=== PATIENT | female | born 1990 | race Caucasian/White ===

== ENCOUNTER → 2018-01-05 09:15 | Outpatient (CLI) | payer OTHER, SELFPAY ==
--- NOTE | 2018-01-05 09:15 | DT_ITS ---
This patient was seen during an EMR downtime January 02, 2018 - January 09, 2018. This patient may have a combination of paper and electronic documentation or all paper documentation. All documentation is viewable within the e-chart portion of [facility] for each patient visit.
[2018-01-17 14:01] LABS: HPV Reflexed? NOT INDICATED
== END ==
PROVIDERS: Visit Provider Obstetrics & Gynecology
DX: Z12.4 Encounter for screening for malignant neoplasm of cervix (principal)
CPT/HCPCS: 88175; G0145

== ENCOUNTER 2020-10-10 12:24 | Outpatient (RCR) | payer OTHER, SELFPAY ==
[2019-07-17 07:38] VITALS: BMI 23.8
[2020-10-10] MEDS: COVID-19 VACC, MRNA(PFIZER)/PF 30 MCG/0.3 ML SYRINGE IM (16:48)
[2020-10-31] MEDS: COVID-19 VACC, MRNA(PFIZER)/PF 30 MCG/0.3 ML SYRINGE IM (16:28)
== END 2021-01-06 23:59 ==
LOC: IMMUN 12:24
PROVIDERS: PCP Nurse Practitioner Family; Visit Provider Family Medicine
DX: Z23 Encounter for immunization (principal)
CPT/HCPCS: 0001A; 0002A; 91300

== ENCOUNTER 2020-10-17 09:23 | Emergency (ER) | payer OTHER, SELFPAY ==
[2019-07-17 07:38] VITALS: BMI 23.8
[2020-10-17 09:24] VITALS: BP 140/76; PULSE 84; RESP 18; TEMP 36.6; O2SAT 96; BMI 28.7
[2020-10-17 09:29] VITALS: RESP 16
--- NOTE | 2020-10-17 09:33 | VDLE_ITS ---
Reason For Study: Pain Procedure LEFT This is a venous duplex using B-mode, color GSV is normal. flow and spectral Doppler. CFV is compressible, spontaneous, phasic, Exam performed portable in ED. competent, and demonstrates normal A preliminary report was called and/or faxed augmentation. to Mario. FV is compressible, spontaneous, phasic, competent and demonstrates normal augmentation. POP V is compressible, spontaneous, phasic, competent and demonstrates normal augmentation. T/P Trunk is compressible. PTV is compressible. LT PerV is compressible. Interpretation Summary There is no evidence of left lower extremity deep vein thrombosis. Left great saphenous vein appears patent and compressible segmentally. Ordering Physician: Tim Martin Referring Physician: Tim Carrera Performed By: Catalina Lopez RVT
--- NOTE | 2020-10-17 09:34 | ED.VIS.GEN ---
History of Present Illness Chief Complaint: Lower Extremity Injury Informant: Patient Narrative: 29-year-old female presenting with left calf pain. She is 17 weeks G1, P0 patient of Dr. Truong. has been unremarkable. She also has a history of melanoma stage Ia. The patient reports that yesterday she began to have pain over the medial posterior calf. She notes some mild swelling and today noticed a small amount of redness over the anterior medial aspect of the leg. She states that she did have some radiation of her pain just above her knee. She denies any trauma or falls. No prior history of DVT PE. No familial history of known clotting disorders. Past Medical History - Allergies and Home Meds Allergies/Adverse Reactions: Allergies Penicillins Allergy (Mild, Verified 10/17/20 09:26) Nausea/Vom/Diarrhea Primary Care Physician: Marianna Lara MD [STAFF PHYSICIAN] - Keep Chepe appointment Tim Carrera NP, POWER EQUIPMENT MECHANICS INSTRUCTOR-C [Primary Care Provider] - As Needed Past Medical History: - - Melanoma Surgical History: noncontributory Lives: Spouse/ Significant Other Smoking Status: Never smoker Alcohol: None Drugs: None Review of Systems General: Denies: Chills, Fever, Sweats Eyes: Denies: Visual changes - bilaterally, Diplopia ENT: Denies: Rhinorrhea, Sore throat Cardiovascular: Denies: Chest pain, Palpitations Respiratory: Denies: Dyspnea, Cough, Dyspnea on exertion Gastrointestinal: Denies: Abdominal pain, Nausea, Vomiting, Diarrhea, Melena, Hematochezia Genitourinary: Denies: Dysuria, Hematuria, Frequency Musculoskeletal: Reports: Swelling, Extremity Pain. Denies: Back pain Skin: Denies: Rash, Wounds Neurological: Denies: Headache, Weakness, Numbness Physical Exam Vital Signs/Narrative: Vital Signs Temp Pulse Resp BP Pulse Ox 10/17/20 09:29 16 10/17/20 09:24 97.9 F 84 18 140/76 H 96 Inital Vital Signs reviewed: Yes General: Well nourished, Well developed, No Acute Distress Head: Normocephalic, Atraumatic Eyes: Perrl, EOMI ENT: Moist mucous membranes, No rhinorrhea Neck: Supple, Nontender Cardiovascular: Regular rate, Regular rhythm, No murmurs Respiratory: No distress, CTA bilaterally, Chest nontender Abdomen: Soft, Nontender, Nondistended, Normal bowel sounds Back: Nontender, Normal Inspection Extremities: - - No significant swelling from left to right leg. Tenderness over the medial aspect of the left calf. There is a faint area of erythema over the anterior mid calf. Skin: Normal color, No rash Neurological: Alert, Oriented x3, Cranial nerves II-XII grossly intact, Normal Strength, Normal Sensation Psychological: Normal affect, Normal Mood Diagnostic/Tx/Re-eval - Medical Decision Making Side ultrasound shows a heart rate of 143. Duplex ultrasound was obtained and negative for DVT. Patient will be discharged home with supportive care. Instructions to follow-up with her doctors return if worsening or concerns ED Disposition - Plan for ED Patient: Disposition: Home or Assisted Living Diagnosis: Pain of left calf Instructions: ED Muscle Strain, Extremity Referrals: Tim Carrera NP, POWER EQUIPMENT MECHANICS INSTRUCTOR-C [Primary Care Provider] - As Needed Marianna Lara MD [STAFF PHYSICIAN] - Keep Chepe appointment
[2020-10-17 10:12] VITALS: BP 108/77; PULSE 62; RESP 14; O2SAT 99
== END 2020-10-17 10:12 | disposition home or self-care (01) ==
PROVIDERS: Emergency Provider Emergency Medicine; PCP Nurse Practitioner Family
DX: O26.892 Other specified pregnancy related conditions, second trimester (principal); M79.662 Pain in left lower leg; Z3A.17 17 weeks gestation of pregnancy
CPT/HCPCS: 93971; 99282

== ENCOUNTER 2021-03-18 19:10 | Inpatient (IN) | payer OTHER, SELFPAY ==
[2021-03-09 09:17] VITALS: BMI 28.7
[2021-03-18] VITALS (13 sets, daily range): BP systolic 119–137; BP diastolic 59–76; PULSE 67–90; TEMP 36.1–36.8; O2SAT 94–98
[2021-03-18] MEDS: Lactated Ringers 1,000 ML 50 ML IV (19:35)
[2021-03-18 19:48] LABS: Absolute Lymphocyte Count 2.23 X10^3/uL (0.83-4.51); Absolute Neutrophil Count 11.1 X10^3/uL (2.0-7.7); Basophil# 0.03 X10^3/uL; Basophil% 0.2 % (0-1); Eosinophils% 0.7 % (0-5); Hematocrit 31.6 % (37-47); Hemoglobin 10.5 g/dL (12.0-15.0); Lymphocyte # 2.23 X10^3/ul (0.83-4.51); Lymphocyte % 15.5 % (19-41); Mean Corp Hgb Conc 33.2 g/dL (32-36); Mean Corpuscular Hgb 31.7 pg (27.0-32.0); Mean Corpuscular Volume 95.5 fL (81-99); Mean Platelet Vol. 9.9 fl (6.2-12.0); Monocyte# 0.79 X10^3/uL; Monocyte% 5.5 % (0-10); NRBC Flagged by Analyzer 0 % (0-5); Neutrophil # 11.12 X10^3/uL (2.7-7.7); Neutrophil % 77.3 % (47-70); Platelet Count 343 K/mm3 (150-450); RBC Distribution Width CV 13.5 % (11.6-14.6); Red Blood Count 3.31 M/mm3 (4.2-5.4); White Blood Count 14.4 K/mm3 (4.4-11.0)
[2021-03-18] MEDS: Oxytocin 30 units/NS 500 ml 30 UNITS/500 ML IV.SOLN IV (21:38)
[2021-03-19] VITALS (54 sets, daily range): BP systolic 109–147; BP diastolic 55–86; PULSE 64–88; TEMP 36.3–37.4; O2SAT 96–100; BMI 33.9
[2021-03-19] MEDS: Lactated Ringers 1,000 ML 200 ML IV ×5 (02:47→21:56)
--- NOTE | 2021-03-19 07:16 | PCM.HP.OB ---
HPI - General General Date of Admission: 03/18/21 HPI Narrative LATHA NEWTON, is a 30 F @ 39.4 weeks who presents for elective IOL. pt has h/o Melanoma- doing well. Maternal Data Information Final TARAH: 03/22/21 Final TARAH Source: US <20 weeks [facility] Medical History History of melanoma Left knee pain Home Medications [id number] acid 1 each PO DAILY 10/17/20 [History Last Taken 03/18/21] ferrous sulfate [iron] 325 mg PO DAILY 03/18/21 [History Last Taken 03/18/21] Allergy/AdvReac Type Severity Reaction Status Date / Time Penicillins Allergy Intermediate Rash Verified 03/18/21 19:32 Family History Father Anxiety Grandfather Alcoholism Myocardial infarction Grandmother Breast cancer Mother Hypertension Surgical History HISTORY OF LEFT KNEE MENISCUS REPAIR History of skin graft History of wisdom tooth extraction Social History Smoking Status: Never smoker alcohol intake: never substance use type: does not use what type of physical activity do you participate in: walking and yoga frequency: 3-4 times per week History Elective abortions Hx Para 0 Spontaneous abortions Hx # Term Pregnancies Ectopic pregnancies Hx # Pregnancies Multiple births # of living children Vital Signs Vital Signs Vital Signs: 03/18/21 19:30 03/18/21 19:31 03/18/21 19:36 Temperature 98.3 F Temperature Source Pulse Rate 80 81 Blood Pressure BP Systolic BP Diastolic Pulse Ox 98 98 03/18/21 19:41 03/18/21 19:42 03/18/21 21:37 Temperature Temperature Source Pulse Rate 78 90 73 Blood Pressure 119/72 127/76 H BP Systolic 119 127 BP Diastolic 72 76 Pulse Ox 97 03/18/21 21:40 03/18/21 21:45 03/18/21 21:46 Temperature 98.1 F Temperature Source Temporal Pulse Rate 76 81 Blood Pressure BP Systolic BP Diastolic Pulse Ox 96 97 03/18/21 22:35 03/18/21 22:38 03/18/21 23:33 Temperature 98.0 F Temperature Source Temporal Pulse Rate 69 67 73 Blood Pressure 119/59 L 137/63 H BP Systolic 119 137 BP Diastolic 59 63 Pulse Ox 94 03/18/21 23:40 03/19/21 00:31 03/19/21 00:33 Temperature 96.9 F L 98.3 F Temperature Source Temporal Temporal Pulse Rate 76 Blood Pressure 120/66 BP Systolic 120 BP Diastolic 66 Pulse Ox 03/19/21 01:31 03/19/21 02:38 03/19/21 02:39 Temperature 97.6 F L 98.4 F Temperature Source Temporal Pulse Rate 77 75 Blood Pressure 133/76 H 122/71 H BP Systolic 133 122 BP Diastolic 76 71 Pulse Ox 97 03/19/21 03:32 03/19/21 03:33 03/19/21 04:27 Temperature 97.4 F L 97.6 F L Temperature Source Temporal Temporal Pulse Rate 73 Blood Pressure 123/64 H BP Systolic 123 BP Diastolic 64 Pulse Ox 98 03/19/21 04:28 03/19/21 05:35 03/19/21 05:36 Temperature 97.8 F Temperature Source Temporal Pulse Rate 70 69 Blood Pressure 109/59 L 117/69 BP Systolic 109 117 BP Diastolic 59 69 Pulse Ox 98 03/19/21 06:22 03/19/21 06:23 Temperature Temperature Source Pulse Rate 70 74 Blood Pressure 119/73 BP Systolic 119 BP Diastolic 73 Pulse Ox 97 Weight Weight: 92.5 g Body Mass Index (BMI) 0.0 Physical Exam Narrative VE: 3/85/-2 Const alert and oriented x3 General Appearance: cooperative HEENT normocephalic GI GI Narrative: Gravid, non tender to palpation. OB / External & Speculum: external exam normal Extremity normal to inspection Skin no rashes or lesions noted Neuro oriented x3 and CN's II-XII intact bilaterally Psych Appearance: grossly normal Labs Labs Labs: Blood Type O NEGATIVE Antibody Screen NEGATIVE Hct 31.6 % (37-47) L Hgb 10.5 g/dL (12.0-15.0) L Assessment & Plan (1) 39 weeks gestation of : (2) Encounter for elective induction of labor: PLAN: Admit to L&D Mont[place] FHR/TOCO Epidural if requested for pain Monitor VS Anticipate AROM performed- Clear fluid continue pitocin
[2021-03-19] MEDS: Lactated Ringers 500 ML 999 ML IV (09:51)
[2021-03-19] MEDS: fentaNYL-bupivacaine (epidural) 100 ML BAG EPIDURAL ×3 (10:57→19:42)
[2021-03-19] MEDS: Ondansetron 4 MG/2 ML Vial IV ×3 (11:22→19:38)
[2021-03-19] MEDS: 0.9% Saline Lock 10 ML Syringe IV ×2 (11:22→16:00)
[2021-03-20] VITALS (14 sets, daily range): BP systolic 100–138; BP diastolic 48–76; PULSE 73–93; RESP 16–18; TEMP 36.3–37.3
--- NOTE | 2021-03-20 01:37 | PLAC_PTH ---
PATIENT: LATHA NEWTON LOC: WP U#:[id number] AGE/SX: 30/F [facility]: Dr. Marianna Lara, MDDOB: 1990 BED: 1 DIS: 03/21/2021 SPEC #: [id number] RECD: 03/20/21 05:37 STATUS: BIJU SAGE #: [id number] AISHA: 03/20/21 01:[address]: Marianna Lara DEPT: SURGICAL PATHOLOGY RECD BY: Oriana Robles ENTERED: 03/20/21 07:48 SP TYPE: PLACENTA OTHR DR: Tim Carrera, BLADE GRADER OPERATOR-C Tissues: Placenta, NOS Procedures: Surgery Specimen Level V HEADER OPERATION: Vaginal delivery PRE-OP DIAGNOSIS: Maternal history of melanoma ? evaluate for malignancy TISSUE SUBMITTED: Placenta MICROSCOPIC DIAGNOSIS Placenta: Placental disc - third trimester placenta (489 gm). - Focal area of intraparenchymal hemorrhage (0.5 cm in greatest dimension). - Focal area of fibrinous deposition (0.5 cm in greatest dimension, maternal surface). - Focal acute vasculitis of subamniotic blood vessels. - Negative for malignancy. See comment. Membranes ? moderate acute chorioamnionitis. Umbilical cord - three blood vessels and acute funisitis. SJ:safia 03/24/2021 COMMENT No obvious lesion consistent with melanoma is noted. MICROSCOPIC DESCRIPTION Slides are reviewed. GROSS DESCRIPTION SPECIMEN: PLACENTA / CLINICAL INFORMATION: A. Weight: 3.57 kg B. Gestational Age: 39 weeks C. Sex: Male PLACENTAL WEIGHT (POST FIXATION): 489 gm PLACENTAL DIMENSIONS: 20 x 19 x 3.5 cm PLACENTAL SHAPE: Usual ovoid PLACENTAL WEIGHT FOR GESTATIONAL AGE: Within 10-99th percentile MEMBRANES - Present A. Insertion: Marginal B. Site of rupture from edge: 3 cm from edge of placental disc C. Color of membrane: Catalan-farris D. Abnormalities: None UMBILICAL CORD - Present A. Color: Catalan-farris B. Insertion: Paracentral C. Length: 32 cm D. Diameter: 1 cm E. Number of vessels: Three F. Abnormalities: None PLACENTAL DISC - Present A. Color of surface: Catalan-farris B. surface abnormalities: None C. Maternal cotyledons: Intact with minimal tears D. Attached retro placental clot: No clot E. Cut surface: Dark red and spongy F. Lesions: Sections reveal two catalan, indurated areas each measuring 0.5 cm in greatest dimension. G. Separate clot: Absent SECTIONS SUBMITTED: 1. Membrane roll 2. Cord, maternal end, lesion 3. Cord, end 4. Placental disc, and maternal surfaces 5. Placental disc, and maternal surfaces 6. Placental disc, and maternal surfaces 7. Placental disc, maternal and surfaces 8. Placental disc, maternal and surfaces, lesion SJ:rg 03/23/21 TC:2 CPT: 33248
[2021-03-20] MEDS: Oxytocin 30 units/NS 500 ml 30 UNITS/500 ML IV.SOLN 334 UNITS IV (01:44)
[2021-03-20] MEDS: Methylergonovine 0.2 MG/ML Ampul IM (01:46)
--- NOTE | 2021-03-20 02:59 | EX.PCM.OBRPT ---
Assessment & Plan (1) Encounter for elective induction of labor: (2) 39 weeks gestation of : Maternal Data Information Final TARAH: 03/22/21 Gestational age: 39&5 Vaginal Delivery Maternal Presentation Maternal Presentation: Elective Induction Type of Induction: Pitocin and Amniotomy Operative Information Date of Procedure: 03/20/21 Pre-Operative Diagnosis: Elective induction of labor Post-Operative Diagnosis: Same Surgery / Procedure Performed: Spontaneous Vaginal Delivery Type of Anesthesia: Epidural Estimated Blood Loss: 500ml Findings Description of Procedure: Patient prepped & draped when C/C/+2. She pushed well to deliver the head. head gently guided to allow delivery of anterior and posterior shoulders. No excess traction placed on head. Body delivered and 3VC clamped & cut in delayed fashion. Placenta delivered with gentle traction and good uterine tone obtained. Presentation: ROBSON Amniotic Membrane Rupture Type: Artificial Amniotic Fluid Description: Clear Placental Delivery Description: Expressed Placenta Disposition: [facility] Specimen(s) Removed: Placenta - sent to pathology Cord Vessel Description: 3 Vessels Cord Entanglement: None A Gender: Male (Zaheer) (1 minute): 8 (5 minute): 9 Delayed Cord Clamping: Yes Post Vaginal Delivery Medications Given After Delivery: IV Pitocin and IM Methergin Episiotomy Description: None Laceration: 1st degree (vaginal (bilateral) - repaired with 3-0 vicryl) Complication Complications: None
[2021-03-20] MEDS: Benzocaine/Lanolin/Aloe Vera 1 SPRAY EACH TOPICAL (04:34)
[2021-03-20] MEDS: Ibuprofen 600 MG Tablet PO (04:35)
[2021-03-20 06:40] LABS: Pathology Specimen OB SEE PATHOLOGY REPORT
[2021-03-20] MEDS: Acetaminophen 500 MG Tablet 1000 MG PO (20:41)
[2021-03-21 02:23] VITALS: BP 98/43; PULSE 70; RESP 18
[2021-03-21 07:48] VITALS: BP 128/64; PULSE 76; RESP 16; TEMP 36.4
--- NOTE | 2021-03-21 08:20 | PCM.PN.OB ---
Subjective Subjective Patient seen at bedside. Awake and alert. Feeling great. Ambulating and voiding without difficulty. with support. Has appointment with department next week. Requests discharge home. Objective Data Objective Data Vital Signs: Vital Signs Temp Pulse Resp BP Pulse Ox 97.5 F L 76 16 128/64 H 97 03/21/21 07:48 03/21/21 07:48 03/21/21 07:48 03/21/21 07:48 03/19/21 18:54 Oxygen Delivery Method Room Air Weight: 203 lb 14.841 oz Body Mass Index (BMI) 33.9 Intake & Output: Intake and Output for Last 24 Hours 03/19/21 03/20/21 03/21/21 23:59 23:59 23:59 Intake Total 5471.30 / 5471.30 2391.14 / 2391.14 Output Total 1350 / 1350 1250 / 1250 Balance 4121.30 / 4121.30 1141.14 / 1141.14 Lab / Micro Data Result Diagrams: 03/18/21 19:35 ROS Eyes Eyes: Denies blurry vision, change in vision or spots in vision ENT HEENT: Denies dizziness or headache(s) Cardiovascular Cardiovascular: Denies abdominal pain, chest pain or dyspnea Respiratory/Chest Respiratory/Chest: Denies cough, dyspnea, shortness of breath at rest or shortness of breath with exertion Gastrointestinal Gastrointestinal: Denies abdominal pain, diarrhea or vomiting Genitourinary Genitourinary: Denies change in urinary stream, difficulty urinating or dysuria Musculoskeletal Musculoskeletal: Reports none Integumentary Integumentary: Denies rash Neurologic Neurologic: Denies dizziness, headache(s), memory loss or weakness Physical Exam Const alert and no apparent distress General Appearance: cooperative and comfortable Exam Limitations: no limitations HEENT normocephalic Eyes General Eye: normal appearance of both eyes Neck full ROM General: normal visual inspection Chest Chest: symmetrical chest wall rise Resp normal respiratory effort and normal air movement Effort and Inspection: symmetric chest movement Auscultation: clear to auscultation bilaterally Cardio regular rate and regular rhythm GI normal to inspection, nondistended, normoactive bowel sounds Back/Spine normal ROM Extremity full ROM and no calf tenderness General Extremity: normal exam except as noted Skin no rashes or lesions noted Neuro CN's II-XII intact bilaterally Psych mental status grossly normal Assessment & Plan (1) (spontaneous vaginal delivery): (2) Mother currently breast-feeding: (3) Laceration, obstetrical, first degree: PLAN: PPD #1 Routine care support D/C home with follow up in office
--- NOTE | 2021-03-21 08:31 | PCM.DC ---
Discharge Instructions Diet Discharge Diet: No restrictions Activity May resume sexual activity in: 6-8 weeks Weight Bearing Status: Weight bearing as tolerated Dressing / Incision Call your doctor if you observe: Fever of 101 or Higher, Inability to urinate, Using more than 1 pad per hour, Shortness of breath, Chest pain, Calf discomfort and Uncontrolled pain Follow Up Care Please Follow Up With: Carol Ann Reyes CNM When: 2 weeks virtual visit/ 6 weeks in office Test Results: Test results from this visit will be discussed in further detail at your follow-up appointment, if applicable. Discharge Plan Admission Admit Date/Time: 03/18/21 19:10 Primary Reason for Your Visit: Induction of labor Attending Provider: Marianna Lara Primary Care Provider: Tim Carrera NP Instructions Patient Instructions: After a Vaginal , : Caring for Yourself Discharge Orders/Prescriptions Prescriptions: No Action [id number] acid 1 EACH tablet 1 each PO DAILY RF: 0 ferrous sulfate [iron] 325 mg (65 mg iron) Tablet 325 mg PO DAILY RF: 0 Referrals / Follow Up: Tim Carrera NP, CARPENTER HELPER MAINTENANCE-C [Primary Care Provider] - Disposition Disposition (needs filled in before D/C Order can be placed): Home, Self Care
== END 2021-03-21 11:45 | disposition home or self-care (01) | DRG 807 ==
PROVIDERS: Obstetrics & Gynecology; Admitting Provider Obstetrics & Gynecology; PCP Nurse Practitioner Family; Visit Provider Obstetrics & Gynecology
DX: O70.0 First degree perineal laceration during delivery (principal); Z37.0 Single live birth; Z85.820 Personal history of malignant melanoma of skin; Z3A.39 39 weeks gestation of pregnancy
CPT/HCPCS: 59025; 59050; 85025; 85461; 86850; 86900; 86901; 88307; 90384; 99218; J7120; A4216; G0378; J2405; J2790

== ENCOUNTER 2023-07-11 07:00 | Inpatient (IN) | payer OTHER, SELFPAY ==
[2023-07-11] VITALS (37 sets, daily range): BP systolic 102–147; BP diastolic 53–86; PULSE 62–95; RESP 16; TEMP 36.6–36.8; O2SAT 91–99; BMI 33.1
--- NOTE | 2023-07-11 | PLAC_PTH ---
PATIENT: LATHA NEWTON LOC: WP U#:[id number] AGE/SX: 32/F ROOM: WP017 RE07/11/[address]: Dr. Jia Royal MD : 1990 BED: 1 DIS: 07/12/2023 SPEC #: [id number] RECD: 07/11/23 14:52 STATUS: BIJU MORRISONDar #: [id number] AISHA: 07/11/23 00:[address]: Jia Royal DEPT: SURGICAL PATHOLOGY RECD BY: Diogenes Pace ENTERED: 07/12/23 09:14 SP TYPE: PLACENTA OTHR DR: Tim Carrera, COMMODITY LOAN CLERK-C Tissues: Placenta, NOS Procedures: Surgery Specimen Level V HEADER OPERATION: Vaginal Delivery PRE-OP DIAGNOSIS: 2 vessel cord TISSUE SUBMITTED: Placenta MICROSCOPIC DIAGNOSIS Placenta: Placental disc - third trimester placenta (387 gm). - Focal area of intraparenchymal hemorrhage (1.0 cm in greatest dimension). Membranes - no pathologic diagnosis. Umbilical cord - two blood vessels. SJ:safia 07/14/2023 MICROSCOPIC DESCRIPTION Slides are reviewed. GROSS DESCRIPTION SPECIMEN: PLACENTA / CLINICAL INFORMATION: A. Weight: 3.605 kg B. Gestational Age: 39.3 weeks C. Sex: Male PLACENTAL WEIGHT (POST FIXATION): 387 gm PLACENTAL DIMENSIONS: 17.0 x 15.5 x 3.0 cm PLACENTAL SHAPE: Usual ovoid PLACENTAL WEIGHT FOR GESTATIONAL AGE: Within 10-99th percentile MEMBRANES - Present A. Insertion: Marginal B. Site of rupture from edge: 3.0 cm from edge of placental disc C. Color of membrane: Blankenship-farris D. Abnormalities: None UMBILICAL CORD - Present A. Color: Blankenship-farris B. Insertion: Marginal C. Length: 40.0 cm D. Diameter: 1.0 cm E. Number of vessels: Two F. Abnormalities: None PLACENTAL DISC - Present A. Color of surface: Blankenship-farris B. surface abnormalities: None C. Maternal cotyledons: Intact with minimal tears D. Attached retro placental clot: No clot E. Cut surface: Dark red and spongy F. Lesions: None G. Separate clot: 8.0 x 4.0 x 1.0 cm SECTIONS SUBMITTED: 1. Umbilical cord ( end notched) 2. Umbilical cord, placental end 3. Membrane roll 4. Placental disc, and maternal surfaces 5. Placental disc, and maternal surfaces 6. Placental disc, and maternal surfaces, peripheral portion AM:safia 07/13/2023 TC:5 CPT: 67369
[2023-07-11] MEDS: Lactated Ringers 1,000 ML 50 ML IV (07:45)
[2023-07-11] MEDS: Oxytocin 15 Units/NS 250ml 15 UNITS/250 ML IV.SOLN 2 UNITS IV (08:08)
[2023-07-11 08:11] LABS: Absolute Lymphocyte Count 2.24 X10^3/uL (0.83-4.51); Absolute Neutrophil Count 10.4 X10^3/uL (2.0-7.7); Basophil# 0.06 X10^3/uL; Basophil% 0.4 % (0-1); Eosinophil# 0.06 X10^3/uL; Eosinophils% 0.4 % (0-5); Hematocrit 33.3 % (37-47); Hemoglobin 10.9 g/dL (12.0-15.0); Lymphocyte # 2.24 X10^3/ul (0.83-4.51); Lymphocyte % 16.6 % (19-41); Mean Corp Hgb Conc 32.7 g/dL (32-36); Mean Corpuscular Hgb 31.3 pg (27.0-32.0); Mean Corpuscular Volume 95.7 fL (81-99); Mean Platelet Vol. 10.4 fl (6.2-12.0); Monocyte# 0.67 X10^3/uL; NRBC Flagged by Analyzer 0 % (0-5); Neutrophil # 10.42 X10^3/uL (2.7-7.7); Neutrophil % 77.2 % (47-70); Platelet Count 301 K/mm3 (150-450); RBC Distribution Width CV 13.3 % (11.6-14.6); RBC Distribution Width SD 46.4 fl (35.1-43.9); Red Blood Count 3.48 M/mm3 (4.2-5.4); White Blood Count 13.5 K/mm3 (4.4-11.0)
[2023-07-11 08:23] LABS: Protein, Urine (Random) < 6.0 mg/dL (<11.9); Protein:Creat Ratio 227 mg/g CRE (0-200)
[2023-07-11 08:29] LABS: AST(SGOT) 13 U/L (15-37); Alanine Aminotransfer ALT/SGPT 16 U/L (13-56); Creatinine, Serum 0.68 mg/dL (0.55-1.02); EST Glomerular Filtration Rate 107 mL/min (>60); Est Glom Filt Rate - Afr Amer 129 mL/min (>60); Estimated Creatinine Clearance 106.87 ml/min; Uric Acid 5.4 mg/dL (2.6-6.0)
[2023-07-11 09:04] LABS: Syphilis Antibodies Non-reactive
[2023-07-11] MEDS: LACTATED RINGERS 500 ML 999 ML IV (11:39)
--- NOTE | 2023-07-11 12:44 | PCM.HP.OB ---
HPI - General General Date of Admission: 07/11/23 Date of Service: 07/11/23 Chief Complaint: labor HPI Narrative LATHA NEWTON, is a 32 F who presents for indcuction of labor due to single umbilical artery of the fetus. Some irreg ctxs. Good fm. Maternal Data Information Final TARAH: 07/15/23 Gestational age: 39 3/7 PFSH PFSH Medical History (Updated 07/11/23 @ 12:[address] Jia Royal MD) History of melanoma depression Home Medications vit 122-ferrous fumarate 27 mg iron-folic acid 800 mcg tablet 1 each PO DAILY 10/17/20 [History Last Taken 03/18/21] ferrous sulfate 325 mg (65 mg iron) tablet (iron) 325 mg PO DAILY anemia 03/18/21 [History Last Taken 03/18/21] Allergy/AdvReac Type Severity Reaction Status Date / Time Penicillins Allergy Intermediate Rash Verified 12/22/21 11:11 Family History Father Anxiety Grandfather Alcoholism Myocardial infarction Grandmother Breast cancer Mother Hypertension Surgical History (Updated 03/01/22 @ 14:44 by Janine Harding) HISTORY OF LEFT KNEE MENISCUS REPAIR History of skin graft History of wisdom tooth extraction Social History Smoking Status: Never smoker alcohol intake: never substance use type: does not use what type of physical activity do you participate in: walking and yoga frequency: 3-4 times per week History Elective abortions Hx Para 0 Spontaneous abortions Hx # Term Pregnancies Ectopic pregnancies Hx # Pregnancies Multiple births # of living children ROS Constitutional Constitutional: Denies fatigue, fever(s) or malaise Eyes Eyes: Denies change in vision ENT HEENT: Denies dizziness or headache(s) Cardiovascular Cardiovascular: Denies chest pain, dyspnea or lightheadedness Respiratory/Chest Respiratory/Chest: Denies cough or dyspnea Gastrointestinal Gastrointestinal: Denies change in bowel habits Genitourinary Genitourinary: Denies burning urination or genital lesions Integumentary Integumentary: Denies rash Neurologic Neurologic: Denies confusion, dizziness, headache(s), numbness or weakness Vital Signs Vital Signs Vital Signs: 07/11/23 07:19 07/11/23 07:19 07/11/23 07:31 Temperature Temperature Source Pulse Rate 65 Blood Pressure 147/81 H 140/81 H BP Systolic 147 140 BP Diastolic 81 81 Pulse Ox 07/11/23 07:31 07/11/23 08:21 07/11/23 08:21 Temperature Temperature Source Pulse Rate 64 67 Blood Pressure 134/75 H BP Systolic 134 BP Diastolic 75 Pulse Ox 07/11/23 09:53 07/11/23 09:53 07/11/23 12:00 Temperature Temperature Source Temporal Pulse Rate 65 Blood Pressure 140/85 H BP Systolic 140 BP Diastolic 85 Pulse Ox 07/11/23 12:00 07/11/23 12:24 07/11/23 12:24 Temperature 97.8 F Temperature Source Pulse Rate 65 Blood Pressure BP Systolic BP Diastolic Pulse Ox 97 07/11/23 12:25 07/11/23 12:25 07/11/23 12:29 Temperature Temperature Source Pulse Rate 64 77 Blood Pressure 142/82 H BP Systolic 142 BP Diastolic 82 Pulse Ox 07/11/23 12:29 07/11/23 12:35 07/11/23 12:35 Temperature Temperature Source Pulse Rate 68 Blood Pressure 135/74 H BP Systolic 135 BP Diastolic 74 Pulse Ox 98 07/11/23 12:34 07/11/23 12:39 07/11/23 12:39 Temperature Temperature Source Pulse Rate 78 Blood Pressure BP Systolic BP Diastolic Pulse Ox 98 96 07/11/23 12:40 07/11/23 12:40 Temperature Temperature Source Pulse Rate 72 Blood Pressure 130/59 H BP Systolic 130 BP Diastolic 59 Pulse Ox Weight Weight: 90.265 kg Body Mass Index (BMI) 33.1 Physical Exam Const alert and no apparent distress General Appearance: cooperative HEENT normocephalic Resp normal respiratory effort Cardio regular rate GI soft to palpation GI Narrative: gravid, nontender, appropriate for gestational age Extremity no calf tenderness General Extremity: edema Skin no wounds Rashes: No rashes noted Psych activity/motor behavior normal Labs Labs Labs: Blood Type O NEGATIVE Antibody Screen NEGATIVE Hct 33.3 % (37-47) L Hgb 10.9 g/dL (12.0-15.0) L Syphilis Total Ab Non-reactive Rhogam given: Yes Assessment & Plan (1) 39 weeks gestation of : PLAN: Risk benefits and alternatives to induction labor discussed with patient consent was signed. Estimated weight is less than 4500 g pelvis clinically adequate to expect vaginal delivery. Pitocin and AROM for induction of labor. May have routine pain management measures as needed. (2) Single umbilical artery affecting management of mother in [place] , antepartum:
[2023-07-11] MEDS: Ondansetron 4 MG/2 ML Vial IV (13:02)
[2023-07-11] MEDS: fentaNYL-bupivacaine (epidural) 100 ML BAG EPIDURAL (13:21)
--- NOTE | 2023-07-11 14:03 | EX.PCM.OBRPT ---
Assessment & Plan (1) (spontaneous vaginal delivery): (2) 39 weeks gestation of : Maternal Data Information Final TARAH: 07/15/23 Gestational age: 39 3/7 Vaginal Delivery Maternal Presentation Maternal Presentation: Medically Indicated Induction Type of Induction: Pitocin and Amniotomy Operative Information Date of Procedure: 07/11/23 Pre-Operative Diagnosis: Post-Operative Diagnosis: same Surgery / Procedure Performed: Spontaneous Vaginal Delivery Type of Anesthesia: Epidural Anesthesiologist: Jose Luis Arias Special Medications: none Drain: [place] to straight drain Estimated Blood Loss: 300 Time of Delivery: 13:51 Findings Description of Procedure: A vigorous male infant was delivered ROBSON over an intact perineum. There was a tight nuchal cord and I was able to to deliver through it without difficulty. It was then reduced after the remainder the was delivered with maternal pushing and gentle traction only in less than 15 seconds. The Pitocin infusion was initiated for active management of the third stage. The cord was clamped and cut after cord pulsations ceased. The was attended to by the waiting nursing staff. The placenta was delivered spontaneously and intact. The cervix and vagina were intact. Sponge and needle counts were correct. A vaginal sweep was completed by me. Presentation: ROBSON Amniotic Membrane Rupture Type: Artificial Amniotic Fluid Description: Clear Placental Delivery Description: Spontaneous Placenta Disposition: Sent to Pathology Cord Vessel Description: 3 Vessels Cord Entanglement: Around neck x 1, tight Nuchal Cord Compression: Without compression A Gender: Male (Michael) (1 minute): 8 (5 minute): 9 Delayed Cord Clamping: Yes Post Vaginal Delivery Medications Given After Delivery: IV Pitocin Episiotomy Description: None Laceration: None Complication Complications: None
[2023-07-11 14:50] LABS: Pathology Specimen OB SEE PATHOLOGY REPORT
[2023-07-11] MEDS: Benzocaine/Lanolin/Aloe Vera 1 SPRAY EACH TOPICAL (19:48)
[2023-07-12] VITALS (7 sets, daily range): BP systolic 127–139; BP diastolic 65–84; PULSE 73–86; RESP 16–18; TEMP 36.2–37.1; O2SAT 97–98
--- NOTE | 2023-07-12 09:07 | PCM.PN.OB ---
Subjective Subjective Doing well per patient and nursing staff. Ambulating and taking PO without difficulty. Voiding and passing flatus. Pain controlled. , services for assistance. Denies headache, visual changes, chest pain, shortness of breath, leg pain or increased bleeding. Lochia normal. Objective Data Objective Data Vital Signs: Vital Signs Temp Pulse Resp BP Pulse Ox O2 Del Method 98.8 F 73 16 139/76 H 98 Room Air 07/12/23 04:03 07/12/23 08:42 07/12/23 04:03 07/12/23 08:42 07/12/23 04:03 07/12/23 04:03 Oxygen Delivery Method Room Air Weight: 199 lb Body Mass Index (BMI) 33.1 Intake & Output: Intake and Output for Last 24 Hours 07/10/23 07/11/23 07/12/23 23:59 23:59 23:59 Intake Total 1055.00 / 1055.00 Output Total 1300 / 1300 Balance -245.00 / -245.00 Lab / Micro Data 07/11/23 07:50 07/11/23 07:50 Labs: Laboratory Results - last 24 hr 07/11/23 07:50: Blood Type O NEGATIVE, Antibody Screen NEGATIVE 07/11/23 16:45: Screen NEGATIVE, Baby's Blood Type O POSITIVE, Baby's JEREMIE NEGATIVE ROS Constitutional Constitutional: Reports systems reviewed and no addt'l complaints, except as documented; Denies headache(s) Eyes Eyes: Denies acute decrease in peripheral vision, blurry vision or change in vision ENT HEENT: Reports systems reviewed and no addt'l complaints, except as documented Cardiovascular Cardiovascular: Denies chest pain or dizziness Respiratory/Chest Respiratory/Chest: Denies cough, dyspnea, dyspnea on exertion, shortness of breath at rest or shortness of breath with exertion Gastrointestinal Gastrointestinal: Denies abdominal pain, diarrhea, nausea or vomiting Genitourinary Genitourinary: Denies abdominal discomfort Musculoskeletal Musculoskeletal: Denies limited range of motion Integumentary Integumentary: Reports systems reviewed and no addt'l complaints, except as documented Neurologic Neurologic: Reports systems reviewed and no addt'l complaints, except as documented Psychiatric Psychiatric: Reports systems reviewed and no addt'l complaints, except as documented Endocrine Endocrinology: Reports systems reviewed and no addt'l complaints, except as documented Hematologic/Lymphatic Hematologic/Lymphatic: Reports systems reviewed and no addt'l complaints, except as documented Allergic/Immunologic Allergic/Immunologic: Reports systems reviewed and no addt'l complaints, except as documented Physical Exam Const alert and oriented x3 General Appearance: cooperative Orientation / Consciousness: awake, oriented to person, oriented to place and oriented to time Exam Limitations: no limitations HEENT normocephalic Head and Scalp: normal to inspection, normocephalic and atraumatic Face and Sinus: normal facial exam Eyes General Eye: normal appearance of both eyes Neck full ROM Chest Chest: symmetrical chest wall rise Resp normal respiratory effort and normal air movement Auscultation: clear to auscultation bilaterally Cardio regular rate, regular rhythm, S1 normal heart sound, S2 normal heart sound, no murmurs, no rub, no gallops and no clicks GI normal to inspection, nondistended, normoactive bowel sounds and non-tender appearance of the vagina normal Bladder / Kidney Exam: no CVA tenderness Back/Spine normal ROM Extremity normal to inspection and full ROM Skin no rashes or lesions noted Neuro oriented x3, CN's II-XII intact bilaterally and moves all extremities Sensorium / Orientation: awake, alert and oriented to person Motor Exam: clonus absent Deep Tendon Reflexes: Rt Patellar (L4): 2+ and Lt Patellar (L4): 2+ Assessment & Plan (1) (spontaneous vaginal delivery): PLAN: Plan 1) PPD#1 2) Pain management 3) vitals stable 4) Follow up in 2 weeks and 6 weeks 5) D/C home
--- NOTE | 2023-07-12 09:09 | DS.PCM_ITS ---
Providers Date of Admission: 07/11/23 Date of Discharge: 07/12/23 Primary Care Physician: Tim Carrera NP-C Reason For Visit: VAG DELIVERY Diagnosis Discharge Diagnosis (1) (spontaneous vaginal delivery): Status: Acute Code(s): O80 - Encounter for full-term uncomplicated delivery Plan 1) PPD#1 2) Pain management 3) vitals stable 4) Follow up in 2 weeks and 6 weeks 5) D/C home Medications at Discharge Home Medications vit 122-ferrous fumarate 27 mg iron-folic acid 800 mcg tablet 1 each PO DAILY 10/17/20 ferrous sulfate 325 mg (65 mg iron) tablet (iron) 325 mg PO DAILY anemia 03/18/21 acetaminophen 500 mg tablet 1,000 mg (2 x 500 mg) PO Q6H PRN PRN Pain 1-10 Or Fever #0 tabs 07/12/23 ibuprofen 600 mg tablet 600 mg PO Q6H PRN PRN Pain Score 1-3 #0 tabs 07/12/23 Weight / BMI Weight Weight: 199 lb Body Mass Index (BMI) 33.1 ABG / Lab / Microbiology Data 07/11/23 07:50 07/11/23 07:50 Laboratory: Laboratory Results - last 24 hr 07/11/23 07:50: Blood Type O NEGATIVE, Antibody Screen NEGATIVE 07/11/23 16:45: Screen NEGATIVE, Baby's Blood Type O POSITIVE, Baby's JREEMIE NEGATIVE D/C Instructions Discharge Diet: No restrictions Discharge Activity: Return to Normal Activity May resume sexual activity in: 6 weeks Weight Bearing Status: Full weight bearing Call your doctor if you observe: Fever of 101 or Higher, Inability to urinate, Inability to have a bowel movement, Using more than 1 pad per hour, Shortness of breath, Increased palpitations (irregular heartbeat), Calf discomfort and Uncontrolled pain When: Follow up with [facility] in 2 weeks for virtual visit and 6 weeks for PP visit Meaningful Use Info Meaningful Use Diagnoses (Choose all that apply): None applicable Discharge Plan Admission Admit Date/Time: 07/11/23 07:00 Primary Reason for Your Visit: Vaginal Delivery Attending Provider: Jia Royal Primary Care Provider: Tim Carrera NP Discharge Orders/Prescriptions Prescriptions: New acetaminophen 500 mg Tablet 1,000 mg PO Q6H PRN PRN (Reason: Pain 1-10 Or Fever) Qty: 0 0RF ibuprofen 600 mg Tablet 600 mg PO Q6H PRN PRN (Reason: Pain Score 1-3) Qty: 0 0RF Continued [id number] acid 1 EACH tablet 1 each PO DAILY ferrous sulfate [iron] 325 mg (65 mg iron) Tablet 325 mg PO DAILY Referrals / Follow Up: Tim Carrera NP, ICT PROJECT MANAGER-C [Primary Care Provider] - Jia Royal MD [Med Staff - Active Staff] - (Follow up with [facility] in 2 weeks for virtual visit and 6 weeks for PP visit) Disposition Disposition (needs filled in before D/C Order can be placed): Home, Self Care
[2023-07-12] MEDS: Rho(D) Immune Globulin 300 MCG (1500 Unit) Syringe IV (13:22)
--- NOTE | 2023-07-13 08:59 | CASEMGMT ---
Social Work Assessment Labor and Delivery Unit Patient Address:[facility] [place] [address] Phone number: [phone] Date of Referral: 07/11/23 Time of Referral:? 1909 Referred By: Jia Royal Date of Intervention: ??07/12/23 Time of Intervention:? 1200 Reason for Referral:? History of depression Sw completed chart review and acknowledges social work consult due to maternal history of depression. Sw presented to bedside and introduced self to mother of baby (ELIAS- Krystal) and father of baby (ADONAY- Rob). Sw explained reason for social work consult and completed psychosocial assessment. History obtained from: medical records, MOB and FOB Household composition:Currently residing at the family home is ADONAY GRIFFIN, their first son, Noah (: 03/20/21) and now baby. Parents deny anyone else living with them. Parents deny any housing needs at this time, state that housing is safe and secure. Patient's parent/guardian status:? Parents report that they met while attending college and have been together for 12 years. No concerns at this time regarding domestic violence or intimate partner violence. ? Medical History: ELIAS is 32 year old who is 2, para 1-2 following labor and delivery of . ELIAS received routine care with [facility] during . ELIAS delivered baby boy via vaginal delivery on 07/11/23. Baby, named Michael, was born weighing 7lb 15oz and his apgars were 8 and 9 at one and five minutes of life respectfully. ELIAS is pumping and reports that this feeding method is going well for her and baby. ELIAS states that baby will be followed by Dr. Irby for Pediatrics. Educational Status:? Both parents obtained master's degrees. Parents deny any concerns with reading, learning or comprehension. Financial Status:Both parents are gainfully employed outside of the home. 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 Infant Supplies:?? Parents report that they have obtained all necessary baby supplies, including: car seat, safe sleep space, clothes, diapers, wipes and a breast pump. Childcare/Caregiver(s):? Parents state that they have an in-home daycare provider that they use when both parents are working. Transportation:??Both parents have their drivers license and reliable means of transportation. No transportation barriers at this time. Programs/Agencies Involved: ?Parents are not connected to any community resources at this time. ?? Children Services/Legal Issues:??No history of children services involvement, no issues or concerns warranting a referral to be made at this time. ? Behavioral Health Issues: ??Mental Health History:?ADONAY denies mental health history. ELIAS states that she has not been diagnosed with any mental health diagnoses, but did experience depression following the delivery of her first baby. ELIAS states that her biggest struggle was breast feeding. ELIAS states that the struggles prompted her to experience depression. ELIAS states that this time she has decided to not feed from the breast, but is going to pump and feed baby. ELIAS stated that she also does not have unrealistic expectations and is open to supplementing if that is necessary. ELIAS states that so far this plan is going well. ELIAS stated that she is aware of signs and symptoms of baby blues to be on the lookout for, and has a lot of natural supports to help her if she were to struggle this time. ADONAY stated that he knows ELIAS very well, and would definitely be able to recognize her struggles and would know how to support her. ?? Substance Use History:??ELIAS denies substance use prior to and during . Family History:??Parents deny family history of addiction and significant mental health. ??? Drug Screens: ??NO urine screens observed in chart review. Family/Social Stressors:? No family stressors identified at this time. Support Systems: Parents state that they have a lot of family and friends who are supportive. Parents state they also have neighbors that they are close to who are able to help them when necessary. Depression/Shaken Baby/Safe Sleeping:? Jordon educated MOB and FOB on signs and symptoms of baby blues and depression/ anxiety. Sw and MOB had open and candid conversation about MOB struggles following the delivery of her first baby, and the things she has done this time to help prepare herself mentally and emotionally. Sw provided literature and resources for parents to review. Sw educated parents on shaken baby prevention and ABCs of safe sleep. Parents expressed understanding. ASSESSMENT:? MOB and baby admitted following labor and delivery of . MOB and FOB talkative and receptive to sw involvement and support. Parents extremely open regarding MOB experienced with depression following the of her first baby. Parents recognize that a lot of things had changed in a short period of time, and MOB struggled with breast feeding- all of which directly impacted MOB mental health. Parents have strong communication and have discussed things that FOB can do to help MOB during this journey. PLAN:? MOB and baby to be discharged when medically ready. ?No other services requested or indicated. Pretty Aguayo, SPANISH LANGUAGE LECTURER, ORACLE BRM DEVELOPER
== END 2023-07-12 15:00 | disposition home or self-care (01) | DRG 807 ==
PROVIDERS: Obstetrics & Gynecology; Admitting Provider Obstetrics & Gynecology; PCP Nurse Practitioner Family; Visit Provider Obstetrics & Gynecology
DX: O35.8XX0 Maternal care for other (suspected) fetal abnormality and damage, not applicable or unspecified (principal); Z37.0 Single live birth; O69.81X0 Labor and delivery complicated by cord around neck, without compression, not applicable or unspecified; Z3A.39 39 weeks gestation of pregnancy; Z87.59 Personal history of other complications of pregnancy, childbirth and the puerperium
CPT/HCPCS: 59025; 59050; 82565; 82570; 84156; 84450; 84460; 84550; 85025; 85461; 86780; 86850; 86900; 86901; 88307; 90384; 99221; J7120; G0378; J2405; J2790; J2791

== ENCOUNTER 2023-10-30 18:33 | Emergency (ER) | payer OTHER, SELFPAY ==
[2023-10-30 18:34] VITALS: BP 117/86; PULSE 71; RESP 14; TEMP 36; O2SAT 97; BMI 29.2
--- NOTE | 2023-10-30 18:48 | EX.ED.DYSGE1 ---
HPI <CHERRY Cooley - Last Filed: 10/30/23 19:58> History of Present Illness Chief Complaint: Laceration Narrative Narrative: Patient is a 33-year-old female with no significant medical history who presents to the emergency department with a left fifth finger laceration. Patient states that she was cleaning dishes when a glass broke striking her left finger on the posterior aspect. Patient does have a significant laceration, however she is able to flex and extend her pinky against resistance. PFSH <CHERRY Cooley - Last Filed: 10/30/23 19:58> [facility] Medical History (Updated 10/30/23 @ 19:57 by CHERRY Cooley) History of melanoma depression Home Medications vit 122-ferrous fumarate 27 mg iron-folic acid 800 mcg tablet 1 each PO DAILY 10/17/20 [History Last Taken 03/18/21] ferrous sulfate 325 mg (65 mg iron) tablet (iron) 325 mg PO DAILY anemia 03/18/21 [History Last Taken 03/18/21] acetaminophen 500 mg tablet 1,000 mg (2 x 500 mg) PO Q6H PRN PRN Pain 1-10 Or Fever #0 tabs 07/12/23 [Rx Last Taken Unknown] ibuprofen 600 mg tablet 600 mg PO Q6H PRN PRN Pain Score 1-3 #0 tabs 07/12/23 [Rx Last Taken Unknown] Allergy/AdvReac Type Severity Reaction Status Date / Time Penicillins Allergy Intermediate Rash Verified 10/30/23 18:36 Family History Father Anxiety Grandfather Alcoholism Myocardial infarction Grandmother Breast cancer Mother Hypertension Surgical History HISTORY OF LEFT KNEE MENISCUS REPAIR History of skin graft History of wisdom tooth extraction Social History Smoking Status: Never smoker alcohol intake: never substance use type: does not use what type of physical activity do you participate in: walking and yoga frequency: 3-4 times per week ROS <CHERRY Cooley - Last Filed: 10/30/23 19:58> ROS ED ROS Narrative Constitutional: Negative for fever, chills, weight loss, weakness Eyes: Negative for vision loss, vision change, double vision ENT: Negative for any sore throat, ear pain, congestion Cardiovascular: Negative for any chest pain, tightness, palpitations Respiratory: Negative for any cough, sputum production, hemoptysis, dyspnea, dyspnea on exertion, orthopnea Gastrointestinal: Negative for any abdominal pain, nausea, vomiting, diarrhea, constipation, blood in stool, blood in vomit : Negative for any urinary frequency, dysuria, retention, blood in urine Muscle skeletal: Negative for any neck pain, back pain. Positive pain in the left fifth finger Neurological: Negative for any headache, syncope, dizziness Skin: Negative for any rashes, itching, abrasions. Positive for laceration to left fifth finger Psychiatric: Negative for any depression, anxiety, stress, suicidal ideation, homicidal ideation Hematologic: Negative for any excessive bruising, easy bleeding EXAM <CHERRY Cooley - Last Filed: 10/30/23 19:58> Physical Exam Narrative Exam Narrative: Vital signs reviewed. \ Extremities: No peripheral edema, no signs of gross trauma or deformity. Active full range of motion of all extremities. Patient does have a laceration 2 cm on the dorsal aspect of the left fifth finger above the PIP joint. Patient is able to flex both at the PIP and DIP. There is no evidence to suspect any tendon involvement. No visual tendon seen. Neuro: Cranial nerves II through XII intact, no focal neurological deficits. Skin: Clean dry and intact with no rash, purpura, petechiae, vesicles or pustules. Backs/flank: No CVA tenderness, no midline spinal tenderness, no deformity. Psych: Normal mood and affect. No SI, HI or acute psychosis. Const Vital Signs: 10/30/23 18:34 10/30/23 20:13 Temperature 96.8 F L 98.0 F Temperature Source Temporal Pulse Rate 71 70 Respiratory Rate 14 18 Blood Pressure 117/86 H 115/64 Blood Pressure Mean 96 81 Pulse Ox 97 100 Oxygen Delivery Method Room Air <Dr. Brennon Boston MD - Last Filed: 10/30/23 22:08> Physical Exam Const Vital Signs: 10/30/23 18:34 10/30/23 20:13 Temperature 96.8 F L 98.0 F Temperature Source Temporal Pulse Rate 71 70 Respiratory Rate 14 18 Blood Pressure 117/86 H 115/64 Blood Pressure Mean 96 81 Pulse Ox 97 100 Oxygen Delivery Method Room Air [facility] <CHERRY Cooley - Last Filed: 10/30/23 19:58> [facility] Treatment and Re-Evaluation :: Differential diagnosis includes however is not limited to: Left fifth finger laceration, tendon rupture, foreign body, fracture Patient appears to be in no obvious respiratory distress, patient's vital signs are stable, patient looks nontoxic. Patient's last tetanus vaccination was updated in 2022. Patient's physical examination consistent with a simple laceration, there is no evidence of any tendon involvement, she has full range of motion. I performed a digital block on the patient's left fifth finger. Sterile gloves, sterile drapes were used. I was able to irrigate copiously with 250 cc normal saline. I was able to place 5 simple interrupted sutures of 5-0 Ethilon. Patient tolerated well. The edges approximated nicely. Patient will be placed in a finger splint to maintain the integrity of the sutures. Patient will change her dressings twice a day. She was given red flag signs and signs to return. Patient is happy with the plan of care, patient's tetanus is up-to-date. Stable for discharge <Dr. Brennon Boston MD - Last Filed: 10/30/23 22:08> [facility] Narrative Medical decision making narrative: I have personally performed a face to face assessment of the patient and have reviewed the DANG Note. I performed a substantive portion of the visit including all aspects of the following. My arciniega findings include: History is sustained accidental laceration left fifth finger when she was cleaning dishes and a glass broke. Exam is 2 cm full-thickness laceration to the dorsum of the left small finger, it involves the dorsal aspect of the DIPJ, but does not progress to the joint and does not limit her ability to fully extend the finger. Medical Decison Making repair supervised by self performed by ELECTROPHYSIOLOGY TECHNOLOGIST, adequate repair performed. Given appropriate discharge instructions. Other additions or changes: [None] Discharge Plan Triage Chief Complaint: Laceration ED Midlevel Provider: Diego Lee ED Provider: Brennon Boston Dx/Rx/DC Orders Clinical Impression: Finger laceration Instructions: ED Laceration, All Closures, ED Laceration Extremity Prescriptions: No Action [id number] acid 1 EACH tablet 1 each PO DAILY ferrous sulfate [iron] 325 mg (65 mg iron) Tablet 325 mg PO DAILY acetaminophen 500 mg Tablet 1,000 mg PO Q6H PRN PRN (Reason: Pain 1-10 Or Fever) Qty: 0 0RF ibuprofen 600 mg Tablet 600 mg PO Q6H PRN PRN (Reason: Pain Score 1-3) Qty: 0 0RF Primary Care Provider: Lilli Resendez NP Referrals: Tim Carrera NP, ELECTROPHYSIOLOGY TECHNOLOGIST-C [Non-Staff] - Activity Restrictions/Additional Instructions: The sutures need to be removed in 7 to 10 days. Keep the finger splint on for the next 3 to 4 days to maintain the integrity of the sutures. Disposition Disposition: Home, Self Care Discharge Date/Time: 10/30/23 20:14
[2023-10-30] MEDS: Lidocaine 1% (20 ml mdv) 20 ML Vial INFILT (19:26)
[2023-10-30 20:13] VITALS: BP 115/64; PULSE 70; RESP 18; TEMP 36.7; O2SAT 100
== END 2023-10-30 20:14 | disposition home or self-care (01) ==
PROVIDERS: Emergency Provider Emergency Medicine; PCP Registered Nurse; Visit Provider Emergency Medicine
DX: S61.217A Laceration without foreign body of left little finger without damage to nail, initial encounter (principal); W25.XXXA Contact with sharp glass, initial encounter
CPT/HCPCS: 99283